=== PATIENT | male | born 2000 | race Hispanic/Latino ===

== ENCOUNTER 2019-03-24 01:22 | Emergency (ER) | payer OTHER ==
[2019-03-24] MEDS ORDERED: ACETAMINOPHEN EXTRA STRENGTH 500 MG TABLET ONE (01:32)
[2019-03-24] MEDS ORDERED: IBUPROFEN 200 MG TAB ONE (01:43)
[2019-03-24] MEDS ORDERED: IBUPROFEN 400 MG TABLET ONE (01:43)
[2019-03-24] MEDS ORDERED: LIDOCAINE HCL 2% VISCOUS 15 ML UDCUP ONE (01:52)
[2019-03-24] MEDS ORDERED: MAG HYDROX/AL HYDROX/SIMETH ES 30 ML SUSP UDCUP ONE (01:52)
[2019-03-24 02:07] LABS: RAPID GROUP A STREP NEGATIVE (NEGATIVE)
== END 2019-03-24 03:07 | disposition home or self-care (01) ==
LOC: EDH 01:22
DX: J10.1 Influenza due to other identified influenza virus with other respiratory manifestations (principal); Z90.49 Acquired absence of other specified parts of digestive tract
CPT/HCPCS: 87804; 87880

== ENCOUNTER 2019-07-21 02:28 | Emergency (ER) | payer SELFPAY ==
[2019-07-21 03:42] LABS: BASOPHILS % (AUTO) 0.2 % (0.0-5.0); EOSINOPHILS % (AUTO) 1.2 % (0.0-8.0); HEMATOCRIT 45.8 % (42-54); LYMPHOCYTES % (AUTO) 6.5 % (21.0-51.0); MEAN CORPUSCULAR HEMOGLOBIN 29.7 pg (27.0-33.0); MEAN CORPUSCULAR HGB CONC 34.3 g/dL (32.0-36.0); MEAN CORPUSCULAR VOLUME 86.7 fL (80-100); MONOCYTES % (AUTO) 7.7 % (3.0-13.0); NEUTROPHILS % (AUTO) 84.1 % (40.0-77.0); PLATELET COUNT (AUTO) 199 K/uL (130-400); RED BLOOD CELL COUNT(AUTO) 5.28 MIL/uL (4.50-6.20); RED CELL DISTRIBUTION WIDTH 12.4 % (11.0-15.5); WHITE BLOOD COUNT (AUTO) 16.1 K/uL (4.8-10.8)
[2019-07-21 03:53] LABS: CREATININE 0.8 mg/dL (0.5-1.5); POTASSIUM 3.8 mmol/L (3.5-5.1)
[2019-07-21] MEDS ORDERED: CLINDAMYCIN 600 MG/D5% WATER 50 ML IV ONE (03:55)
[2019-07-21] MEDS ORDERED: KETOROLAC TROMETHAMINE 30MG/ML ONE (03:55)
[2019-07-21 03:58] LABS: BILIRUBIN,TOTAL 0.8 mg/dL (0.2-1.0); TOTAL PROTEIN, SERUM 8.6 g/dL (6.0-8.3)
== END 2019-07-21 05:37 | disposition home or self-care (01) ==
LOC: EDH 02:28
DX: J03.90 Acute tonsillitis, unspecified (principal); J39.1 Other abscess of pharynx; Z90.49 Acquired absence of other specified parts of digestive tract
CPT/HCPCS: 36415; 70490; 80053; 83605; 85025; 87040; 87880; 96365; 96375; 99284; J1885; J3490